=== PATIENT | male | born 1945 | race Caucasian/White ===

== ENCOUNTER 2021-05-28 11:52 | Inpatient (IN) | payer OTHER ==
[~2021-05-28] VITALS: Ht 185.4 cm; Wt 106.0 kg
[2021-05-28] MEDS ORDERED: NOVOINJ SC (12:16)
[2021-05-28] MEDS ORDERED: FLOM0.4C39 PO (12:16)
[2021-05-28] MEDS ORDERED: FURO20TA2 PO (12:16)
[2021-05-28] MEDS ORDERED: FINA5TAB2 PO (12:16)
[2021-05-28] MEDS ORDERED: STRI1AER2 INH (12:16)
[2021-05-28] MEDS ORDERED: CARV25TA PO (12:16)
[2021-05-28] MEDS ORDERED: LANTINJ4 SC (12:16)
[2021-05-28] MEDS ORDERED: VENTAER INH (12:16)
[2021-05-28] MEDS ORDERED: ATOR80TA59 PO (12:16)
[2021-05-28] MEDS ORDERED: ELIQ5TAB PO (12:16)
[2021-05-28] MEDS ORDERED: methylPREDNISolone 125MG 2ML VIAL IV ONE (12:20)
--- NOTE | 2021-05-28 12:59 | REP ---
INDICATION: DYSPNEA/COUGH. COMPARISON: None. TECHNIQUE: Portable FINDINGS: The technique utilized in obtaining the radiograph has magnified the cardiac silhouette and accentuated the interstitial markings. There is cardiomegaly accentuated by technique. The lung martinez are clear for the technique utilized in obtaining the exam. The left lower lung field has not been included on the portable radiograph. There are multiple old appearing right-sided rib fractures poorly imaged. IMPRESSION: Cardiomegaly without evidence of acute cardiopulmonary disease. Other findings as described above. <Electronically signed by Amado Escobar > 05/28/21 [id number]
[2021-05-28 13:05] LABS: BASO % 0.7 % (0.0-1.0); EOS % 0.5 % (0.0-3.0); LYMPH # 0.6 10^3/uL (1.5-5.0); LYMPH % 10.8 % (24.0-44.0); MEAN CORPUSCULAR HEMOGLOBIN 29.5 pg (27.0-33.0); MEAN CORPUSCULAR HGB CONC 33.3 g/dl (32.0-36.5); MEAN CORPUSCULAR VOLUME 88.6 fl (80.0-96.0); MONO # 0.6 10^3/uL (0.0-0.8); MONO % 10.3 % (2.0-8.0); NEUTROPHILS # 4.5 10^3/uL (1.5-8.5); NEUTROPHILS % 76.8 % (36.0-66.0); PLATELET COUNT, AUTOMATED 110 10^3/uL (150-450); WHITE BLOOD COUNT 5.8 10^3/uL (4.0-10.0)
[2021-05-28] MEDS ORDERED: NS IV ONE (13:15)
[2021-05-28 13:29] LABS: BILIRUBIN,DIRECT 0.4 MG/DL (0.0-0.2); BILIRUBIN,TOTAL 1.5 MG/DL (0.2-1.0); CALCIUM LEVEL 8.6 MG/DL (8.8-10.2); CREATININE FOR GFR 2.44 MG/DL (0.70-1.30); GLOMERULAR FILTRATION RATE 27.6 (>42); POTASSIUM SERUM 4.3 MEQ/L (3.5-5.1); THYROID STIMULATING HORMONE 0.569 uIU/ML (0.358-3.740); TOTAL PROTEIN 6.4 GM/DL (6.4-8.2)
--- NOTE | 2021-05-28 13:32 | REP ---
INDICATION: SOB COMPARISON: 05/28/2021 at 12:36 p.m. TECHNIQUE: Portable AP view of the chest FINDINGS: The mediastinum and cardiac silhouette are stable and cardiomegaly is again noted. Lung martinez demonstrate chronic appearing changes. No acute consolidation, effusion, or pneumothorax. Skeletal structures demonstrate old healed right rib fractures. IMPRESSION: No acute cardiopulmonary process appreciated. <Electronically signed by Yasir Oscar > 05/28/21 [id number]
[2021-05-28] MEDS ORDERED: FUROSEMIDE 40MG/4ML VIAL (J1940) IV ONE (13:50)
--- NOTE | 2021-05-28 14:21 | REP ---
INDICATION: SOB; elevated BNP; ?CHF COMPARISON: None TECHNIQUE: Axial noncontrast images from the thoracic inlet to the upper abdomen with coronal and sagittal reformations. This CT examination was performed using the following dose reduction techniques: Automated exposure control, adjustment of mA and/or kv according to the patient's size, and use of iterative reconstruction technique. FINDINGS: Mild cardiomegaly is appreciated with small pericardial effusion. The lung martinez demonstrate chronic emphysematous changes along with small to moderate bilateral pleural effusions (right greater than left) and associated passive atelectasis. No pneumothorax. Tracheobronchial tree is patent. No adenopathy. Partially calcified mediastinal and hilar lymph nodes consistent with prior granulomatous disease. Musculoskeletal structures are intact. IMPRESSION: 1. Mild cardiomegaly and small pericardial effusion warrants follow-up. 2. Small to moderate pleural effusions with passive atelectasis (right greater than left) suggests early CHF. <Electronically signed by Yasir Oscar > 05/28/21 [id number]
[2021-05-28] MEDS ORDERED: ACETAMINOPHEN TAB 650MG DOSE (2X325MG) PO PRN (15:40)
--- NOTE | 2021-05-28 16:18 | ECGEPIP ---
[facility] - ED Test Date: 2021-05-28 Pat Name: HAWA HOFFMAN Department: Room: - Gender: Male Food Service Assistant: Malika AUGUST : 1945 Requested By: Phil Moreno Order Number: [id number] Reading MD: Raghu Ann Measurements Intervals [place] Rate: 87 P: [place]: QRS: 26 QRSD: 106 T: 1 QT: 374 QTc: 450 Interpretive Statements Atrial fibrillation Possible Inferior infarct , age undetermined Low QRS complex voltage in the limb leads Nonspecific T wave abnormality Comparison tracing not on file Electronically Signed on 05-28-2021 16:17:48 EST by Raghu Ann
[2021-05-28] MEDS ORDERED: HOME MED LIST COMPLETE! XX SCH (16:35)
[2021-05-28] MEDS ORDERED: GLUCOSE 4GM CHEW TABLET PO PRN (16:40)
[2021-05-28] MEDS ORDERED: GLUCAGON INJ 1MG VIAL SC PRN (16:40)
[2021-05-28] MEDS ORDERED: DEXTROSE 50% 50 ML SYRINGE IV PRN (16:40)
[2021-05-28] MEDS ORDERED: HumaLOG INSULIN (NovoLOG) PER UNIT SC SCH ×2 (17:30→21:00)
--- NOTE | 2021-05-28 18:32 | HPEPDOC ---
[facility] Medical History & Physical Date of Admission May 28, 2021 Date of Service: May 28, 2021 Attending Physician: DANA GRAVES MD History and Physical CHIEF COMPLAINT: sob x 10days HISTORY OF PRESENT ILLNESS: 75 yo M who [facility], with a history of CAD s/p stents, CHF on lasix 20 PO daily, CKD 3 baseline Cr 2.4, IDDM, chronic afib on eliquis, HTN, HLD, COPD, BPH, history of anemia, who had covid-19 PNA 1 month ago and now recovered and actually had his booster shot on 05/26/2021, who presented from the [facility] after evaluation there in the outpatient setting for SOB and was found to be hypotensive with SBP 70s but otherwise without dizziness, LOC, chest pain, palpitations, fever, chills, history of nauses, emesis, diarrhea, abdominal pain, poor PO or falls. He reports that he has been SOB for about 10d now but still went ahead with getting his booster shot and it was not until he had an appointment today that they noted the hypotension and insisted on ED presentation. In the ED, he was hypotensive to SBP 70s x 2 and was ordered to receive 30cc/kg fluids but after 567cc of NS his BP drastically improved back to SBP 130s and fluids were stopped as he had crackles on examination. He otherwise reportedly did not have peripheral edema but had notable crackles throughout on examination while saturating well on room air. He was subsequently given 40 IV lasix once. I am not sure why, but he was also given solumedrol 125mg though there was no report of hypoxemia, distress or wheezing. Studies revealed a WBC of 5.8, hgb 13, platelets 110, na 138, K 4.3, BUN 25, Cr 2.44 at baseline, proBNP of 4430, troponin I of 0.09, while respiratory panel was negative for covid-19 and lactic acid was 1.9. He had two CXRs that were negative for acute pathology and eventually had a non-contrast chest CT that revealed a small pericardial effusion and small to moderate bilateral pleural effusions. He is now being admitted for suspected CHF exacerbation and I suspect that his hypotension is driven by high coreg dose at 25 BID that is leaving no hemodynamic room for loop diuresis and thus with pulmonary congestion and effusions. PAST MEDICAL HISTORY: history of CAD s/p stents CHF on lasix 20 PO daily CKD 3 baseline Cr 2.4 IDDM chronic afib on eliquis HTN HLD COPD BPH history of anemia had covid-19 PNA 1 month ago PAST SURGICAL HISTORY: PCI Appendectomy Tonsillectomy Adenoidectomy Carpal tunnel release Orthopedic back surgery SOCIAL HISTORY: Tobacco use:No ETOH: No Illicit drug use: No ALLERGIES: Please see below. REVIEW OF SYSTEMS: 10 point ROS was completed and was otherwise negative except for the pertinent positives discussed in the HPI. HOME MEDICATIONS: Please see below. PHYSICAL EXAMINATION: VITAL SIGNS: see below GENERAL: NAD HEENT: NCAT, EOMI, MMM CARDIOVASCULAR: Irregularly irregular, no m/r/g LUNGS: Scattered crackles, no wheezing ABDOMEN: Normoactive bowel sounds, soft, NTND EXTREMITIES: WWP, no LE edema NEUROLOGICAL: Cn 3-12 intact, grossly nonfocal examination with 5/5 strength in all 4 limbs PSYCHIATRIC: AOx3 LABORATORY DATA: Reviewed above. See below. IMAGING: Reviewed above. See imaging section. MICROBIOLOGY: Please see below. ASSESSMENT: 75 yo M who [facility], with a history of CAD s/p stents, CHF on lasix 20 PO daily, CKD 3 baseline Cr 2.4, IDDM, chronic afib on eliquis, HTN, HLD, COPD, BPH, history of anemia, who had covid-19 PNA 1 month ago and now recovered and actually had his booster shot on 05/26/2021, [facility] and was found to be hypotensive and presented with such but with crackles clinically in mild CHF exacerbation now being admitted for suspected CHF exacerbation and I suspect that his hypotension is driven by high coreg dose at 25 BID that is leaving no hemodynamic room for loop diuresis. PLAN: Suspected CHF exacerbation, subtype unclear, no prior TTE inhouse. Usually follows at the [facility] -TTE -telemetry -EKG was non-ischemic -troponin was negative -patient denies chest pain or palpitations -lasix 40 IV BID, with goal net negative 2L -consistent carb diet with 2g sodium and 2L/24h fluid restriction -strict I/Os -daiy weights -daily BMP and mag -reduce coreg from 25 BID to 3.125 BID to give hemodynamic room for diuresis -Hold PO loop diuretic COPD: no evidence of clinical exacerbation -continue home i DM: -continue levemir 26u QHS, SSI, FABG ACHS, hypoglycemia protocol Chronic Afib: -Adjust eliquis to renal dosing to 2.5mg BID BPH: -continue home finasteride and flomax HLD: -continue lipitor 80mg daily DVT ppx: on eliquis Vital Signs Vital Signs Date Time Temp Pulse Resp B/P (MAP) Pulse Ox O2 Delivery O2 Flow Rate FiO2 05/28/21 15:31 99 20 110/73 (85) 96 Room Air 05/28/21 11:53 97.6 Laboratory Data Labs 24H Laboratory Tests 2 05/28/21 12:33: Immature Granulocyte % (Auto) 0.9, Neutrophils (%) (Auto) 76.8H, Lymphocytes (%) (Auto) 10.8L, Monocytes (%) (Auto) 10.3H, Eosinophils (%) (Auto) 0.5, Basophils (%) (Auto) 0.7, Neutrophils # (Auto) 4.5, Lymphocytes # (Auto) 0.6L, Monocytes # (Auto) 0.6, Eosinophils # (Auto) 0.0, Basophils # (Auto) 0.0, Nucleated Red Blood Cells % (auto) 0.0, Anion Gap 7L, Glomerular Filtration Rate 27.6L, Lactic Acid Level 1.9, Calcium Level 8.6L, Total Bilirubin 1.5H, Direct Bilirubin 0.4H, Aspartate Amino Transf (AST/SGOT) 19, Alanine Aminotransferase (ALT/SGPT) 23, Alkaline Phosphatase 128H, QO-Gzn-I-Type Natriuretic Peptide 4430H, Total Protein 6.4, Albumin 3.0L, Albumin/Globulin Ratio 0.9, Thyroid Stimulating Hormone (TSH) 0.569, Thyroxine (T4) 7.0 05/28/21 12:40: POC Troponin I (Misc) 0.09H CBC/BMP Laboratory Tests 05/28/21 12:33 Microbiology Microbiology 05/28/21 Blood Culture, Received Pending 05/28/21 Respiratory Virus Panel (PCR) ([facility]) - Final, Complete 05/28/21 Blood Culture, Received Pending Home Medications Scheduled Apixaban (Eliquis) 5 Mg Tablet, 5 MG PO BID Atorvastatin Calcium (Atorvastatin Calcium) 80 Mg Tablet, 80 MG PO DAILY Carvedilol (Carvedilol) 25 Mg Tablet, 25 MG PO BID Finasteride (Finasteride) 5 Mg Tablet, 5 MG PO DAILY Furosemide (Furosemide) 20 Mg Tablet, 20 MG PO DAILY Insulin Aspart (Novolog) 100 Unit/1 Ml Cartridge, 8 UNITS SC TID Insulin Glargine,Hum.rec.anlog (Lantus Solostar) 100 Unit/1 Ml Insuln.pen, 26 UNIT SC QPM Olodaterol HCl (Striverdi Respimat) 4 Gm Mist.inhal, 2.5 MCG INH BID Tamsulosin HCl (Flomax) 0.4 Mg Capsule, 0.4 MG PO DAILY Scheduled PRN Albuterol Sulfate (Ventolin Hfa) 18 Gm Hfa.aer.ad, 2 PUFF INH Q4-6HP PRN for wheezing Allergies Coded Allergies: No Known Allergies (Unverified , 05/28/21) A-FIB/CHADSVASC A-FIB History Current/History of A-Fib/PAF?: Yes Current PO Anticoag Therapy: Yes Treatment Treatment ordered: Apixaban DANA GRAVES MD May 28, 2021 16:36
[2021-05-28] MEDS ORDERED: FORMOTEROL FUMARATE 20 MCG/2 ML INHALATION SOLUTION (PERFOROMIST) INH SCH (20:00)
[2021-05-28 20:31] VITALS: BP 163/97
[2021-05-28] MEDS ORDERED: CARVedilol 3.125 MG TAB PO SCH (21:00)
[2021-05-28] MEDS ORDERED: APIXABAN 5 MG TAB (ELIQUIS) PO SCH (21:00)
[2021-05-28] MEDS ORDERED: LEVEMIR (INSULIN DETEMIR) 1 UNITS/0.01ML SC SCH (21:00)
[2021-05-29] MEDS ORDERED: FUROSEMIDE 40MG/4ML VIAL (J1940) IV SCH
--- NOTE | 2021-05-29 08:31 | DS.PDOC ---
Discharge Summary General Date of Admission May 28, 2021 at 15:39 Date of Discharge 05/28/2021 Attending Physician: DANA GRAVES MD Discharge Summary PROCEDURES PERFORMED DURING STAY: None ADMITTING DIAGNOSES: CHF exacerbation DISCHARGE DIAGNOSES: CHF exacerbation, subtype unspecified Iatrogenic hypotension i/s/o antihypertensive therapy CAD s/p stents CKD 3 IDDM chronic afib on eliquis HTN HLD COPD BPH history of anemia had covid-19 PNA 1 month ago COMPLICATIONS/CHIEF COMPLAINT: CHF. HISTORY OF PRESENT ILLNESS: 75 yo M who [facility], with a history of CAD s/p stents, CHF on lasix 20 PO daily, CKD 3 baseline Cr 2.4, IDDM, chronic afib on eliquis, HTN, HLD, COPD, BPH, history of anemia, who had covid-19 PNA 1 month ago and now recovered and actually had his booster shot on 05/26/2021, who [facility] evaluation [facility] in the outpatient setting for routine followup and was found to be hypotensive with SBP 70s but otherwise without dizziness, LOC, chest pain, palpitations, fever, chills, history of nauses, emesis, diarrhea, abdominal pain, poor PO or falls. He reported that he had been SOB for about 10d now but still went ahead with getting his booster shot and it was not until he had an appointment today that they noted the hypotension and insisted on ED presentation. HOSPITAL COURSE: In the ED, he was hypotensive to SBP 70s x 2 readings and was ordered to receive 30cc/kg fluids but after 567cc of NS his BP drastically improved back to SBP 130s and fluids were stopped as he had crackles on examination. He otherwise re portedly did not have peripheral edema but had notable crackles throughout on examination while saturating well on room air. He was subsequently given 40 IV lasix once. I am not sure why, but he was also given solumedrol 125mg though there was no report of hypoxemia, distress or wheezing. Studies revealed a WBC of 5.8, hgb 13, platelets 110, na 138, K 4.3, BUN 25, Cr 2.44 at baseline, proBNP of 4430, troponin I of 0.09, while respiratory panel was negative for covid-19 and lactic acid was 1.9. He had two CXRs that were negative for acute pathology and eventually had a non-contrast chest CT that revealed a small pericardial effusion and small to moderate bilateral pleural effusions. I admitted him for suspected CHF exacerbation and I suspected that his initial hypotension was driven by high coreg dose at 25 BID that is leaving no hemodynamic room for loop diuresis and thus with pulmonary congestion and effusions. I discussed that I was admitting him with to adjust his meds with goal to reduce his coreg in order to adequately diurese him with loop diuretics without precipitating symptomatic hypotension. However overnight, he left AMA. DISCHARGE MEDICATIONS: Please see below. ALLERGIES: Please see below. PHYSICAL EXAMINATION ON DISCHARGE: LEFT AMA overnight LABORATORY DATA: Please see below. IMAGING: CT chest, without contrast: FINDINGS: Mild cardiomegaly is appreciated with small pericardial effusion. The lung martinez demonstrate chronic emphysematous changes along with small to moderate bilateral pleural effusions (right greater than left) and associated passive atelectasis. No pneumothorax. Tracheobronchial tree is patent. No adenopathy. Partially calcified mediastinal and hilar lymph nodes consistent with prior granulomatous disease. Musculoskeletal structures are intact. IMPRESSION: 1. Mild cardiomegaly and small pericardial effusion warrants follow-up. 2. Small to moderate pleural effusions with passive atelectasis (right greater than left) suggests early CHF. CXR: x 2 on 05/28 on admission No acute cardiopulmonary pathology noted. PROGNOSIS: Good with close PCP and cardiology follow up. ACTIVITY: As tolerated DIET: 2g sodium, consistent carb DISCHARGE PLAN: AMA DISPOSITION: 07 Against Medical Advice. DISCHARGE INSTRUCTIONS: AMA ITEMS TO FOLLOWUP ON ON OUTPATIENT: CHF HTN med adjustment DISCHARGE CONDITION: Stable TIME SPENT ON DISCHARGE: 33 minutes. Vital Signs/I&Os Vital Signs Date Time Temp Pulse Resp B/P (MAP) Pulse Ox O2 Delivery O2 Flow Rate FiO2 05/28/21 20:31 163/97 (119) 05/28/21 20:30 95 97 05/28/21 17:30 97.2 Room Air 05/28/21 15:31 20 I&O- Last 24 Hours up to 6 AM 05/29/21 06:00 Intake Total 576 ml Output Total 600 ml Balance -24 ml Laboratory Data Labs 24H Laboratory Tests 2 05/28/21 12:33: Immature Granulocyte % (Auto) 0.9, Neutrophils (%) (Auto) 76.8H, Lymphocytes (%) (Auto) 10.8L, Monocytes (%) (Auto) 10.3H, Eosinophils (%) (Auto) 0.5, Basophils (%) (Auto) 0.7, Neutrophils # (Auto) 4.5, Lymphocytes # (Auto) 0.6L, Monocytes # (Auto) 0.6, Eosinophils # (Auto) 0.0, Basophils # (Auto) 0.0, Nucleated Red Blood Cells % (auto) 0.0, Anion Gap 7L, Glomerular Filtration Rate 27.6L, Lactic Acid Level 1.9, Calcium Level 8.6L, Total Bilirubin 1.5H, Direct Bilirubin 0.4H, Aspartate Amino Transf (AST/SGOT) 19, Alanine Aminotransferase (ALT/SGPT) 23, Alkaline Phosphatase 128H, UB-Dsv-L-Type Natriuretic Peptide 4430H, Total Prote in 6.4, Albumin 3.0L, Albumin/Globulin Ratio 0.9, Thyroid Stimulating Hormone (TSH) 0.569, Thyroxine (T4) 7.0 05/28/21 12:40: POC Troponin I (Misc) 0.09H CBC/BMP Laboratory Tests 05/28/21 12:33 Microbiology Microbiology 05/28/21 Blood Culture, Received Pending 05/28/21 Respiratory Virus Panel (PCR) ([facility]) - Final, Complete 05/28/21 Blood Culture, Received Pending Discharge Medications Scheduled Apixaban (Eliquis) 5 Mg Tablet, 5 MG PO BID, (Reported) Atorvastatin Calcium (Atorvastatin Calcium) 80 Mg Tablet, 80 MG PO DAILY, (Reported) Carvedilol (Carvedilol) 25 Mg Tablet, 25 MG PO BID, (Reported) Finasteride (Finasteride) 5 Mg Tablet, 5 MG PO DAILY, (Reported) Furosemide (Furosemide) 20 Mg Tablet, 20 MG PO DAILY, (Reported) Insulin Aspart (Novolog) 100 Unit/1 Ml Cartridge, 8 UNITS SC TID, (Reported) Insulin Glargine,Hum.rec.anlog (Lantus Solostar) 100 Unit/1 Ml Insuln.pen, 26 UNIT SC QPM, (Reported) Olodaterol HCl (Striverdi Respimat) 4 Gm Mist.inhal, 2.5 MCG INH BID, (Reported) Tamsulosin HCl (Flomax) 0.4 Mg Capsule, 0.4 MG PO DAILY, (Reported) Scheduled PRN Albuterol Sulfate (Ventolin Hfa) 18 Gm Hfa.aer.ad, 2 PUFF INH Q4-6HP PRN for wheezing, (Reported) Allergies Coded Allergies: No Known Allergies (Unverified , 05/28/21) DANA GRAVES MD May 29, 2021 08:31
[2021-05-29] MEDS ORDERED: FINASTERIDE 5 MG TAB PO SCH (09:00)
[2021-05-29] MEDS ORDERED: ATORVASTATIN 20 MG TAB PO SCH (09:00)
[2021-05-29] MEDS ORDERED: TAMSULOSIN 0.4 MG CAP PO SCH (09:00)
== END 2021-05-28 21:07 | disposition left against medical advice (07) | DRG 292 ==
LOC: M ED 11:52 → M ED INP 15:39 → ENRESERV 20:46
PROVIDERS: ADMIT Internal Medicine; ATTEND Internal Medicine
DX: I13.0 Hypertensive heart and chronic kidney disease with heart failure and stage 1 through stage 4 chronic kidney disease, or unspecified chronic kidney disease (principal); I48.20 Chronic atrial fibrillation, unspecified; I25.10 Atherosclerotic heart disease of native coronary artery without angina pectoris; I50.9 Heart failure, unspecified; Z95.5 Presence of coronary angioplasty implant and graft; N18.30 Chronic kidney disease, stage 3 unspecified; E11.22 Type 2 diabetes mellitus with diabetic chronic kidney disease; E78.5 Hyperlipidemia, unspecified; J44.9 Chronic obstructive pulmonary disease, unspecified; N40.0 Benign prostatic hyperplasia without lower urinary tract symptoms; Z86.16 Personal history of COVID-19; I95.89 Other hypotension; Z90.49 Acquired absence of other specified parts of digestive tract; Z79.01 Long term (current) use of anticoagulants; Z20.822 Contact with and (suspected) exposure to COVID-19; Z79.899 Other long term (current) drug therapy

== ENCOUNTER 2022-03-09 12:24 | Observation (INO) | payer OTHER ==
[~2022-03-09] VITALS: Ht 185.4 cm; Wt 91.3 kg
[~2022-03-09 12:24] MED LIST: ATOR80TA59 PO; CARV25TA PO; ELIQ5TAB PO; FINA5TAB2 PO; FLOM0.4C39 PO; FURO20TA2 PO; LANTINJ4 SC; NOVOINJ SC; STRI1AER2 INH; VENTAER INH
[2022-03-09 13:56] LABS: BASO % 0.4 % (0.0-1.0); EOS # 0.1 10^3/uL (0.0-0.5); EOS % 0.6 % (0.0-3.0); HEMATOCRIT 36.8 % (42.0-52.0); LYMPH # 1.4 10^3/uL (1.5-5.0); LYMPH % 14.6 % (24.0-44.0); MEAN CORPUSCULAR HEMOGLOBIN 28.3 pg (27.0-33.0); MEAN CORPUSCULAR HGB CONC 32.6 g/dl (32.0-36.5); MEAN CORPUSCULAR VOLUME 86.8 fl (80.0-96.0); MONO # 0.8 10^3/uL (0.0-0.8); MONO % 8.6 % (2.0-8.0); NEUTROPHILS # 7.2 10^3/uL (1.5-8.5); NEUTROPHILS % 75.4 % (36.0-66.0); PLATELET COUNT, AUTOMATED 157 10^3/uL (150-450); RED BLOOD COUNT 4.24 10^6/uL (4.30-6.10); WHITE BLOOD COUNT 9.5 10^3/uL (4.0-10.0)
[2022-03-09 14:09] LABS: INR 1.33; PROTHROMBIN TIME 16.9 SECONDS (12.7-14.5)
[2022-03-09 14:25] LABS: CK-MB VALUE MASS 2.7 NG/ML (<3.6); MB/CK RELATIVE INDEX 3.38 (< OR =4)
[2022-03-09 14:37] LABS: BLOOD UREA NITROGEN 36 MG/DL (7-18); CALCIUM LEVEL 8.5 MG/DL (8.8-10.2); CARBON DIOXIDE LEVEL 21 MEQ/L (21-32); CHLORIDE LEVEL 109 MEQ/L (98-107); CREATININE FOR GFR 2.13 MG/DL (0.70-1.30); ETHYL ALCOHOL (ETHANOL) < 0.003 % (0.000-0.010); FREE T4 1.01 NG/DL (0.76-1.46); GLOMERULAR FILTRATION RATE 32.2 (>42); GLUCOSE, FASTING 129 MG/DL (70-100); MAGNESIUM LEVEL 2.4 MG/DL (1.8-2.4); POTASSIUM SERUM 3.4 MEQ/L (3.5-5.1); SODIUM LEVEL 137 MEQ/L (136-145); THYROID STIMULATING HORMONE 0.554 uIU/ML (0.358-3.740)
[2022-03-09] MEDS ORDERED: STIO1AER INH (15:44)
[2022-03-09] MEDS ORDERED: SEMA1PEN2 SC (15:44)
[2022-03-09] MEDS ORDERED: FURO40TA2 PO (15:44)
[2022-03-09] MEDS ORDERED: REFR0.5D8 OU (15:44)
[2022-03-09] MEDS ORDERED: GLUCAGON INJ 1MG VIAL SC PRN (15:45)
[2022-03-09] MEDS ORDERED: GLUCOSE 4GM CHEW TABLET PO PRN (15:45)
[2022-03-09] MEDS ORDERED: HOME MED LIST COMPLETE! XX SCH (15:45)
[2022-03-09] MEDS ORDERED: DEXTROSE 50% 50 ML SYRINGE IV PRN (15:45)
[2022-03-09] MEDS ORDERED: ALBUTEROL 90 MCG/ACT 8GM HFA INHALER INH PRN (16:05)
[2022-03-09 16:10] LABS: RSV AMPLIFICATION NEGATIVE (NEGATIVE)
[2022-03-09] MEDS ORDERED: FUROSEMIDE 40 MG TAB PO SCH (17:00)
[2022-03-09 17:29] LABS: AMPHETAMINES LEVEL URINE NEGATIVE (NEGATIVE); BARBITURATES URINE NEGATIVE (NEGATIVE); BENZODIAZEPINES URINE NEGATIVE (NEGATIVE); CANNABINOIDS URINE NEGATIVE (NEGATIVE); COCAINE METABOLITE URINE NEGATIVE (NEGATIVE); METHADONE URINE NEGATIVE (NEGATIVE); OPIATES URINE NEGATIVE (NEGATIVE); PHENCYCLIDINE URINE NEGATIVE (NEGATIVE)
[2022-03-09] MEDS: ASPIRIN 81MG ENTERIC TABLET PO SCH (18:13)
[2022-03-09] MEDS: INSULIN LISPRO (NovoLOG) PER UNIT SC SCH ×2 (18:26→20:47)
[2022-03-09] MEDS ORDERED: PILL CUTTER 1 EACH XX ONE (18:27)
[2022-03-09] MEDS: FUROSEMIDE 40 MG TAB PO SCH (18:28)
[2022-03-09] MEDS ORDERED: POTASSIUM CHLORIDE 10% LIQ 20 MEQ/15 ML UDC PO ONE (19:00)
[2022-03-09 20:42] VITALS: BP 128/80
[2022-03-09] MEDS ORDERED: FINASTERIDE 5MG TAB PO SCH (21:00)
[2022-03-09] MEDS ORDERED: CARVedilol 12.5 MG TAB PO SCH (21:00)
[2022-03-09] MEDS: LEVEMIR (INSULIN DETEMIR) 1 UNITS/0.01ML SC SCH (21:52)
[2022-03-09 21:53] VITALS: BP 128/80
[2022-03-09] MEDS: APIXABAN 5 MG TAB (ELIQUIS) PO SCH (21:53)
[2022-03-09] MEDS: CARVedilol 12.5 MG TAB PO SCH (21:53)
[2022-03-10] VITALS: BP 101/68
[2022-03-10 04:00] VITALS: BP 113/68
[2022-03-10 06:47] LABS: CALCIUM LEVEL 8.3 MG/DL (8.8-10.2); CREATININE FOR GFR 1.99 MG/DL (0.70-1.30); GLOMERULAR FILTRATION RATE 34.9 (>42); POTASSIUM SERUM 3.6 MEQ/L (3.5-5.1)
[2022-03-10 07:29] LABS: BASO % 0.3 % (0.0-1.0); EOS # 0.1 10^3/uL (0.0-0.5); EOS % 1.8 % (0.0-3.0); HEMATOCRIT 36.6 % (42.0-52.0); HEMOGLOBIN 11.7 g/dl (13.5-17.5); LYMPH # 1.4 10^3/uL (1.5-5.0); LYMPH % 19.2 % (24.0-44.0); MEAN CORPUSCULAR HEMOGLOBIN 28.3 pg (27.0-33.0); MEAN CORPUSCULAR VOLUME 88.4 fl (80.0-96.0); MONO # 0.7 10^3/uL (0.0-0.8); MONO % 8.9 % (2.0-8.0); NEUTROPHILS # 5.1 10^3/uL (1.5-8.5); NEUTROPHILS % 69.3 % (36.0-66.0); PLATELET COUNT, AUTOMATED 141 10^3/uL (150-450); RED BLOOD COUNT 4.14 10^6/uL (4.30-6.10); WHITE BLOOD COUNT 7.3 10^3/uL (4.0-10.0)
[2022-03-10 07:35] LABS: MAGNESIUM LEVEL 2.4 MG/DL (1.8-2.4)
[2022-03-10 08:00] VITALS: BP 128/82
[2022-03-10] MEDS ORDERED: TIOTROPIUM INHALER/CAPSULE (SPIRIVA) INH SCH (08:00)
[2022-03-10] MEDS: LEVEMIR (INSULIN DETEMIR) 1 UNITS/0.01ML SC SCH (08:29)
[2022-03-10] MEDS: APIXABAN 5 MG TAB (ELIQUIS) PO SCH (08:30)
[2022-03-10] MEDS: ASPIRIN 81MG ENTERIC TABLET PO SCH (08:30)
[2022-03-10] MEDS: FUROSEMIDE 40 MG TAB PO SCH (08:30)
[2022-03-10] MEDS: CARVedilol 12.5 MG TAB PO SCH (08:30)
[2022-03-10] MEDS ORDERED: ATORVASTATIN 20 MG TAB PO SCH (09:00)
[2022-03-10 10:10] VITALS: BP 128/82; PULSE 94
[2022-03-10] MEDS ORDERED: ASPI-551 PO (11:19)
[2022-03-10] MEDS ORDERED: FURO40TA2 PO (11:19)
[2022-03-10] MEDS ORDERED: CARV12.5 PO (11:19)
[2022-03-10] MEDS ORDERED: FLUBLOK(EGG FREE)(QUAD)INFLUENZA VACC 0.5ML SYRINGE 18YRS & OLDER IM.IMMUN ONE (12:00)
[2022-03-10] MEDS: INSULIN LISPRO (NovoLOG) PER UNIT SC SCH (12:00)
[2022-03-10] MEDS ORDERED: PREVNAR-20 VACCINE 0.5ML SYRINGE IM.IMMUN ONE (12:00)
== END 2022-03-10 14:22 | disposition home or self-care (01) ==
LOC: M ED 12:24 → M ED INP 15:43 → ENRESERV 17:51 → M PCU 20:25
PROVIDERS: ADMIT Internal Medicine; ATTEND Internal Medicine
DX: R55 Syncope and collapse (principal); I25.10 Atherosclerotic heart disease of native coronary artery without angina pectoris; Z98.61 Coronary angioplasty status; I50.9 Heart failure, unspecified; N18.30 Chronic kidney disease, stage 3 unspecified; E11.9 Type 2 diabetes mellitus without complications; I48.20 Chronic atrial fibrillation, unspecified; I12.9 Hypertensive chronic kidney disease with stage 1 through stage 4 chronic kidney disease, or unspecified chronic kidney disease; E78.49 Other hyperlipidemia; J44.9 Chronic obstructive pulmonary disease, unspecified; Z79.01 Long term (current) use of anticoagulants; N40.0 Benign prostatic hyperplasia without lower urinary tract symptoms; D64.9 Anemia, unspecified; Z79.82 Long term (current) use of aspirin; Z79.899 Other long term (current) drug therapy
CPT/HCPCS: 36415; 70450; 70551; 71045; 80048; 80307; 82077; 82550; 82553; 83735; 84439; 84443; 84484; 85025; 85610; 87631; 90677; 90682; 93005; 93041; 93306; 93880; 94664; 94760; 97161; 97165; 99285; G0008; G0378; J1815

== ENCOUNTER → 2023-07-09 | Outpatient (CLI) | payer OTHER ==
[~2023-07-09] MED LIST changes: +ASPI-551 PO; +CARV12.5 PO; +FURO40TA2 PO; +METO1TAB32 PO; +REFR0.5D8 OU; +SEMA1PEN2 SC; +STIO1AER INH; +STRI1AER2 IN
== END ==
LOC: M ONCR 08:40
PROVIDERS: ATTEND General Practice
DX: C34.12 Malignant neoplasm of upper lobe, left bronchus or lung (principal); Z71.2 Person consulting for explanation of examination or test findings; Z79.01 Long term (current) use of anticoagulants; Z79.4 Long term (current) use of insulin; Z79.85 Long-term (current) use of injectable non-insulin antidiabetic drugs; Z79.899 Other long term (current) drug therapy; Z80.0 Family history of malignant neoplasm of digestive organs; Z87.891 Personal history of nicotine dependence

== ENCOUNTER 2023-07-30 10:17 | Outpatient (RCR) | payer OTHER | END 2023-08-05 | LOC: M ONCR 10:17 | PROVIDERS: ATTEND General Practice | DX: Z51.0 Encounter for antineoplastic radiation therapy (principal); C34.12 Malignant neoplasm of upper lobe, left bronchus or lung ==

== ENCOUNTER → 2023-10-25 | Outpatient (CLI) | payer OTHER ==
[~2023-10-25] MED LIST changes: +ISOVUE-370 76% 100ML VIAL As Ordered ONE
== END ==
LOC: M RAD 11:00
PROVIDERS: ATTEND General Practice
DX: C34.12 Malignant neoplasm of upper lobe, left bronchus or lung (principal)

== ENCOUNTER → 2024-04-10 | Outpatient (CLI) | payer OTHER ==
[~2024-04-10] MED LIST changes: -ISOVUE-370 76% 100ML VIAL As Ordered ONE
== END ==
LOC: M RAD 09:12
PROVIDERS: ATTEND General Practice
DX: C34.12 Malignant neoplasm of upper lobe, left bronchus or lung (principal); I51.7 Cardiomegaly; J90 Pleural effusion, not elsewhere classified; I25.10 Atherosclerotic heart disease of native coronary artery without angina pectoris; I70.0 Atherosclerosis of aorta; J47.9 Bronchiectasis, uncomplicated

== ENCOUNTER → 2024-04-28 | Outpatient (CLI) | payer MEDICARE, OTHER | LOC: M ONCR 09:04 | PROVIDERS: ATTEND General Practice | DX: C34.12 Malignant neoplasm of upper lobe, left bronchus or lung (principal); Z87.891 Personal history of nicotine dependence; Z92.3 Personal history of irradiation; Z79.899 Other long term (current) drug therapy; Z79.01 Long term (current) use of anticoagulants; Z79.4 Long term (current) use of insulin; Z79.85 Long-term (current) use of injectable non-insulin antidiabetic drugs ==

== ENCOUNTER → 2024-07-25 | Outpatient (CLI) | payer MEDICARE, OTHER | LOC: M RAD 10:55 | PROVIDERS: ATTEND General Practice | DX: C34.12 Malignant neoplasm of upper lobe, left bronchus or lung (principal); J84.9 Interstitial pulmonary disease, unspecified; J90 Pleural effusion, not elsewhere classified; I31.39 Other pericardial effusion (noninflammatory) ==

== ENCOUNTER → 2024-08-01 | Outpatient (CLI) | payer OTHER | LOC: M ONCR 08:22 | PROVIDERS: ATTEND General Practice | DX: C34.12 Malignant neoplasm of upper lobe, left bronchus or lung (principal); Z87.891 Personal history of nicotine dependence; Z92.3 Personal history of irradiation; Z79.85 Long-term (current) use of injectable non-insulin antidiabetic drugs; Z79.01 Long term (current) use of anticoagulants; Z79.899 Other long term (current) drug therapy; Z79.4 Long term (current) use of insulin ==

== ENCOUNTER → 2024-08-21 | Outpatient (CLI) | payer OTHER | LOC: M PLARAD 12:05 | PROVIDERS: ATTEND General Practice | DX: C34.12 Malignant neoplasm of upper lobe, left bronchus or lung (principal) | CPT/HCPCS: 78815; A9552 ==

== ENCOUNTER → 2024-08-30 | Outpatient (CLI) | payer OTHER | LOC: M ONCR 08:08 | PROVIDERS: ATTEND General Practice | DX: C34.12 Malignant neoplasm of upper lobe, left bronchus or lung (principal); Z87.891 Personal history of nicotine dependence; Z92.3 Personal history of irradiation; Z79.4 Long term (current) use of insulin; Z79.899 Other long term (current) drug therapy ==

== ENCOUNTER 2024-09-01 13:48 | Outpatient (RCR) | payer MEDICARE, OTHER | END 2024-09-04 | LOC: M ONCR 13:48 | PROVIDERS: ATTEND General Practice | DX: Z51.0 Encounter for antineoplastic radiation therapy (principal); C34.12 Malignant neoplasm of upper lobe, left bronchus or lung ==

== ENCOUNTER 2024-09-27 10:28 | Outpatient (RCR) | payer OTHER ==
[~2024-09-27 10:28] MED LIST changes: -FLOM0.4C39 PO; +TAMS-18 PO
== END 2024-10-04 ==
PROVIDERS: ATTEND General Practice
DX: Z51.0 Encounter for antineoplastic radiation therapy (principal); C34.12 Malignant neoplasm of upper lobe, left bronchus or lung

== ENCOUNTER → 2024-12-20 | Outpatient (CLI) | payer OTHER | LOC: M RAD 10:06 | PROVIDERS: ATTEND General Practice | DX: C34.12 Malignant neoplasm of upper lobe, left bronchus or lung (principal) ==

== ENCOUNTER → 2024-12-27 | Outpatient (CLI) | payer OTHER | LOC: M ONCR 10:00 | PROVIDERS: ATTEND General Practice | DX: C34.12 Malignant neoplasm of upper lobe, left bronchus or lung (principal); Z87.891 Personal history of nicotine dependence; Z92.3 Personal history of irradiation; Z79.01 Long term (current) use of anticoagulants; Z79.4 Long term (current) use of insulin; Z79.85 Long-term (current) use of injectable non-insulin antidiabetic drugs; Z79.899 Other long term (current) drug therapy ==